=== PATIENT | male | born 1980 | race Caucasian/White ===

== ENCOUNTER 2021-08-23 00:05 | Observation (INO) ==
[2021-08-23 00:14] VITALS: BMI 30.2
[2021-08-23] MEDS ORDERED: NS 100 ML IV 100 ML IV STA (00:33)
[2021-08-23] MEDS ORDERED: ASPIRIN EC 81 MG PO ONE (00:33)
--- NOTE | 2021-08-23 00:33 | DR.CP ---
HPI Time Seen Time Seen by Provider: 08/23/21 00:23 PCP Primary Care Physician: WALT STANLEY HPI Comment HPI Comment: PATIENT WITH A HISTORY OF GERD COMPLAINS OF ACUTE ONSET OF SUB STERNAL BURNING DISCOMFORT CONSTANT SINCE 7PM LAST NIGHT, RADIATES TO HIS BACK ASSOCIATED WITH NAUSEA AND HEADACHE. Complaint Chief Complaint Doctor Comments: CHEST PAIN Chief Complaint:: PT C/O CHEST PAIN THAT GOES THUR TO HIS BACK LT ARM PAIN AND BAD HEADACHE WITH SOME NAUSEA. PAIN HAS BEEN CONSTANT SINCE 7 PM COVID-19 Coronavirus risk:travel/contact w/high risk person: No Has patient experienced Coronavirus symptoms: No Reviewed Nurses Notes Review: Yes Source History Provided: Patient Mode of Arrival Mode of Arrival: Ambulatory Timing Onset of Chief Complaint: 08/22/21 Duration Duration: Constant How lon Duration: Hours Location Location of Chest Pain: Chest Context Onset: At rest Quality Quality: Burning Severity Severity: Moderate Modifying Factors Worsens: Nothing PMH PMH Past Medical History: No Past Surgical History: Yes Surgical History: Appendectomy Past Surgical History Comment: SINUS SURGERY Family History History of Family Medical Conditions: No Social History Does any household member use tobacco: No Alcohol Use: None Do you use any recreational Drugs:: No Lives With: Family Lives Where: Home Infectious screening In the last 2 months have you had wt loss of >10#?: NO Have you had fever, night sweats or hemotysis?: No Have you traveled outside the country in the last 6 months?: No Isolation: Standard ROS Review of Systems Constitutional: No Symptoms Reported Eyes: No Symptoms Reported ENTM: No Symptoms Reported Respiratoy: No Symptoms Reported Cardiovascular: See HPI and Chest Pain (BURNING PAIN DISCOMFORT) Gastrointestinal/Abdominal: See HPI Genitourinary: No Symptoms Reported Neurological: No Symptoms Reported Musculoskeletal: No Symptoms Reported Integumentary: No Symptoms Reported Hematologic/Lymphatic: No Symptoms Reported Endocrine: No Symptoms Reported Psychiatric: No Symptoms Reported All Other Systems: Reviewed and Negative PE Vitals Vitals: Temperature 98.2 F Pulse Rate [Apical] 57 Pulse Rate 52 Respiratory Rate 18 Blood Pressure [Left Arm] 110/70 Blood Pressure 133/84 O2 Sat by Pulse Oximetry 99 General Limitations: No Limitations General Appearance: Alert and In No Apparent Distress Head Head Exam: Normal Inspection Eyes Eye exam: Normal Appearance and PERRL ENT ENT Exam: Normal Oropharynx Chest Chest Inspection: Normal Inspection and Symmetric Chest Wall Rise Respiratory Respiratory Exam: Normal Lung Sounds Bilat Respiratory Exam: Bilateral: Clear to Auscultation Cardiovascular Cardiovascular Exam: Regular Rate and Bradycardia Pulse: Normal Abdominal Exam Abdominal Exam: Normal Inspection, Normal Bowel Sounds and Soft Neurologic Neurological Exam: Alert and Oriented X3 Psychiatric Psychiatric Exam: Normal Affect and Normal Mood Skin Skin Exam: Warm and Dry MDM Additional Information Findings: ANGINA Differential Diagnosis Differential Diagnosis: Chest Wall Pain, Costochondritis and Gastritis COURSE Treatment Treatment: IV NORMAL SALINE 50ML/HR, ASPIRIN 324MG ORALLY, PROTONIX 40MG IV, NITROPASTE 1/2 " ANTERIOR CHEST WALL Reevaluation 1st: Improved Consultation Call Returned: 05:43 Consultation Comments: DISCUSSED WITH DR ABBOTT FOR OBSERVATION ROR Labs Reviewed Laboratory Results Reviewed?: Yes Result Diagrams: 08/23/21 00:55 08/23/21 00:55 Laboratory: WBC 7.0 X10^3/uL (3.6-10.0) 08/23/21 00:55 RBC 4.42 X10^6/uL (4.7-6.0) L 08/23/21 00:55 Hgb 13.8 g/dL (13.5-18.0) 08/23/21 00:55 Hct 39.2 % (42.0-54.0) L 08/23/21 00:55 MCV 88.6 fL (80.0-100.0) 08/23/21 00:55 MCH 31.2 pg (27.0-34.0) 08/23/21 00:55 MCHC 35.2 g/dL (33.0-35.0) H 08/23/21 00:55 RDW 12.9 % (11.6-16.5) 08/23/21 00:55 Plt Count 240 X10^3/uL (150.0-450.0) 08/23/21 00:55 MPV 7.1 fL (7.4-11.0) L 08/23/21 00:55 Neut % (Auto) 62.5 % (42.0-75.0) 08/23/21 00:55 Lymph % (Auto) 22.6 % (21.0-51.0) 08/23/21 00:55 [place] % (Auto) 9.5 % (0.0-13.0) 08/23/21 00:55 Eos % (Auto) 4.4 % (0.9-2.9) H 08/23/21 00:55 Baso % (Auto) 1.0 % (0.2-1.0) 08/23/21 00:55 Neut # (Auto) 4.4 x10^3/uL (2.2-4.8) 08/23/21 00:55 Lymph # (Auto) 1.6 X10^3/uL (1.3-2.9) 08/23/21 00:55 [place] # (Auto) 0.7 x10^3/uL (0.3-0.8) 08/23/21 00:55 Eos # (Auto) 0.3 x10^3/uL (0.0-0.2) H 08/23/21 00:55 Baso # (Auto) 0.1 X10^3/uL (0.0-0.1) 08/23/21 00:55 Absolute Nucleated RBC 0.1 /100WBC 08/23/21 00:55 D-Dimer 0.20 ug/ml (0.0-0.57) 08/23/21 00:55 Sodium 140 mmol/L (136-145) 08/23/21 00:55 Corrected Sodium 140 mmol/L (136-145) 08/23/21 00:55 Potassium 3.5 mmol/L (3.5-5.1) 08/23/21 00:55 Chloride 104 mmol/L (98-107) 08/23/21 00:55 Carbon Dioxide 28.8 mmol/L (21-32) 08/23/21 00:55 BUN 15 mg/dL (7-18) 08/23/21 00:55 Creatinine 1.05 mg/dL (0.70-1.30) 08/23/21 00:55 Est GFR (MDRD) Af Amer > 60 (>60) 08/23/21 00:55 Est GFR (MDRD) Non-Af > 60 (>60) 08/23/21 00:55 Glucose 115 mg/dL (65-99) H 08/23/21 00:55 Calcium 9.0 mg/dL (8.5-10.1) 08/23/21 00:55 Corrected Calcium TNP 08/23/21 00:55 Magnesium 2.1 mg/dL (1.7-2.9) 08/23/21 00:55 Total Bilirubin 0.40 mg/dL (0.2-1.0) 08/23/21 00:55 AST 27 Units/L (15-37) 08/23/21 00:55 ALT 55 Units/L (12-78) 08/23/21 00:55 Alkaline Phosphatase 77 Units/L (46-116) 08/23/21 00:55 Troponin I < 0.02 ng/mL (0-1.5) 08/23/21 00:55 Total Protein 7.1 g/dL (6.4-8.2) 08/23/21 00:55 Albumin 3.7 g/dL (3.4-5.0) 08/23/21 00:55 Globulin 3.4 g/dL (2.5-4.5) 08/23/21 00:55 Albumin/Globulin Ratio 1.1 Ratio (1.1-2.1) 08/23/21 00:55 SARS-CoV-2 (PCR) Negative (NEGATIVE) 08/23/21 03:50 Influenza Type A (PCR) Negative (NEGATIVE) 08/23/21 03:50 Influenza Type B (PCR) Negative (NEGATIVE) 08/23/21 03:50 RSV (PCR) Negative (NEGATIVE) 08/23/21 03:50 XRAY X-ray Results: PORTABLE CHEST XRAY -NO ACUTE PROCESS EKG Rate: 52 [place]: Normal Rhythm: NSR and SB Opioid Opioid Risk Tool Total: 0 Total Score Risk Category: Low Risk Copyright: Robin MATTSON predicting aberrant behaviors Diagnosis Discharge Problem: Acute chest pain
[2021-08-23] MEDS ORDERED: NITROSTAT SL PRN (00:39)
[2021-08-23] MEDS ORDERED: NS 1,000 ML IV 1,000 ML IV ONE (00:44)
[2021-08-23] MEDS ORDERED: ASPIRIN 81 MG CHEWTAB ONE (00:45)
[2021-08-23] MEDS ORDERED: NS 1,000 ML IV 1,000 ML ONE (00:46)
[2021-08-23 01:06] LABS: BASOPHILS # (AUTO) 0.1 X10^3/uL (0.0-0.1); EOSINOPHILS # (AUTO) 0.3 x10^3/uL (0.0-0.2); EOSINOPHILS % (AUTO) 4.4 % (0.9-2.9); HEMATOCRIT 39.2 % (42.0-54.0); HEMOGLOBIN 13.8 g/dL (13.5-18.0); LYMPHOCYTES # (AUTO) 1.6 X10^3/uL (1.3-2.9); LYMPHOCYTES % (AUTO) 22.6 % (21.0-51.0); MEAN CORPUSCULAR HEMOGLOBIN 31.2 pg (27.0-34.0); MEAN CORPUSCULAR HGB CONC 35.2 g/dL (33.0-35.0); MEAN CORPUSCULAR VOLUME 88.6 fL (80.0-100.0); MEAN PLATELET VOLUME 7.1 fL (7.4-11.0); MONOCYTES # (AUTO) 0.7 x10^3/uL (0.3-0.8); MONOCYTES % (AUTO) 9.5 % (0.0-13.0); NEUTROPHILS # (AUTO) 4.4 x10^3/uL (2.2-4.8); NEUTROPHILS % (AUTO) 62.5 % (42.0-75.0); PLATELET COUNT 240 X10^3/uL (150.0-450.0); RED BLOOD COUNT 4.42 X10^6/uL (4.7-6.0); RED CELL DISTRIBUTION WIDTH 12.9 % (11.6-16.5)
[2021-08-23 01:17] LABS: ALANINE AMINOTRANSFERASE 55 Units/L (12-78); ALBUMIN 3.7 g/dL (3.4-5.0); ALKALINE PHOSPHATASE 77 Units/L (46-116); ASPARTATE AMINO TRANSFERASE 27 Units/L (15-37); BLOOD UREA NITROGEN 15 mg/dL (7-18); CARBON DIOXIDE 28.8 mmol/L (21-32); CHLORIDE 104 mmol/L (98-107); COR NA(FOR HYPERGLY) 140 mmol/L (136-145); CREATININE 1.05 mg/dL (0.70-1.30); MAGNESIUM 2.1 mg/dL (1.7-2.9); SODIUM 140 mmol/L (136-145); TOTAL PROTEIN 7.1 g/dL (6.4-8.2); TROPONIN I < 0.02 ng/mL (0-1.5); eGFR NON BLACK RACES > 60 (>60)
[2021-08-23] MEDS ORDERED: NITRO-BID OINT 2% UD (E.R. USE ONLY) TD ONE (01:17)
[2021-08-23] MEDS ORDERED: NITRO-BID OINT 2% UD (E.R. USE ONLY) ONE (01:21)
[2021-08-23] MEDS ORDERED: PROTONIX INJ 40 MG VIAL IVP ONE ×2 (01:25→01:32)
[2021-08-23] MEDS ORDERED: PROTONIX INJ 40 MG VIAL ONE (01:26)
--- NOTE | 2021-08-23 01:56 | RAD ---
HISTORYDYSPNEA PSH: APPENDIX, SINUSESSTUDYCHEST, 1 VIEWCOMPARISONNoneFINDINGSThe trachea is midline. The cardiac silhouette is unremarkable. The lungs are clear without focal infiltrate or effusion. Pulmonary vasculature within normal limits. No pneumothorax. The bony thorax is unremarkable.IMPRESSIONNormal chest.Electronically signed by: Rey Aj (Aug 23, 2021 01:54:18)
[2021-08-23 06:30] LABS: CKMB % 0.5 % (<4); CREATINE KINASE 204 Units/L (39-308); CREATINE KINASE MB < 1.0 ng/mL (0-4.0); TROPONIN I < 0.02 ng/mL (0-1.5)
[2021-08-23] MEDS: NS 1,000 ML IV 1,000 ML IV SCH ×2 (07:23→20:46)
[2021-08-23] MEDS ORDERED: PROTONIX INJ 40 MG VIAL IVP SCH (09:00)
[2021-08-23] MEDS: ASPIRIN PO SCH (09:15)
[2021-08-23] MEDS: LOVENOX INJ 100 MG SYR SC SCH ×2 (09:16→20:49)
[2021-08-23] MEDS: MORPHINE SULFATE INJ 2 MG INJ IVP PRN (09:55)
--- NOTE | 2021-08-23 11:14 | US ---
HISTORY: Right upper quadrant abdominal pain. Nausea and vomiting.Study: Right upper quadrant abdominal ultrasoundComparison: None available.Technique: Multiple walsh scale and color flow Doppler images of the right upper quadrant were obtained.Findings: The liver [is normal in echotexture and size]. No focal intraparenchymal mass or intrahepatic biliary ductal dilatation can be observed. [The gallbladder fails to demonstrate evidence for cholelithiasis or layering sludge]. The common bile duct is unremarkable measuring 2 mm. [No pericholecystic fluid or gallbladder wall thickening can be observed]. The CBD measures [within normal limits]. There is appropriate vascular flow in the portal vein, hepatic artery, and visualized hepatic veins. The right kidney appears normal in size without focal parenchymal mass or nephrolithiasis. The right kidney measurers 11 x 5 x 5 cm. No hydronephrosis or perirenal fluid can be observed. The [pancreatic head and body are unremarkable. The pancreatic tail] is largely obscured by overlying bowel gas. No ascites or loculated fluid collection is evident.IMPRESSION:1. Unremarkable examination of the right upper quadrant.Electronically signed by: GEOVANNI POLLACK III (Aug 23, 2021 11:12:48)
--- NOTE | 2021-08-23 11:41 | DR.H&P ---
H&P - History & Physical for Day of: H&P Date: 08/23/21 - Chief Complaint Chief Complaint: CHEST PAIN, NAUSEA - History of Present Illness History of Present Illness: IS A 41 YEAR OLD PATIENT OF OURS. HE PRESENTED TO THE ER WITH COMPLAINTS OF SUBSTERNAL CHEST PAIN. PAIN STARTED ABOUT 5 HOURS PRIOR TO ARRIVAL AND HAD PROGRESSIVELY GOTTEN WORSE. HE REPORTS THAT PAIN RADIATES TO THE LEFT ARM AND THROUGH TO HIS BACK. HE ALSO REPORTS HEADACHE AND NAUSEA. PAIN IS CONSTANT, BURNING, AND WAS RATED A 6/10 ON ARRIVAL. PATIENT HAS A HISTORY OF GERD. HE DENIES ANYTHING THAT MAKES CHEST PAIN BETTER. HE REPORTS THAT HE OFTEN HAS NAUSEA AND A BURNING PAIN AFTER EATING, BUT NEVER LIKE THIS EPISODE. ON ARRIVAL TO THE ER, VITALS WERE 98.2-52-18-97%-133/84. LABS WERE OBTAINED. ABNORMAL LAB VALUES INCLUDE THE FOLLOWING: RBC 4.42, HCT 39.2, GLUCOSE 115. CARDIAC ENZYMES WITHIN NORMAL LIMITS. COVID, INFLUENZA, AND RSV NEGATIVE. EKG WAS OBTAINED AND REVEALED: SINUS RHYTHM WITH HR 52. CHEST XRAY WAS OBTAINED AND REVEALED: The trachea is midline. The cardiac silhouette is unremarkable. The lungs are clear without focal infiltrate or effusion. Pulmonary vasculature within normal limits. No pneumothorax. The bony thorax is unremarkable. IN THE ER, HE WAS GIVEN ECOTRIN 81MG PO X 1, NITROBID OINTMENT, PROTONIX 40MG IV X 1. HE WAS ADMITTED TO THE HOSPITAL FOR FURTHER EVALUATION AND TREATMENT OF CHEST PAIN RULE OUT ACUTE UT, NAUSEA. HE WAS STARTED ON NORMAL SALINE AT 75 ML/HR, ASPIRIN 325MG PO DAILY, LOVENOX 100MG SC BID, MORPHINE 1-2MG IV Q4H PRN, PROTONIX 40MG IV DAILY, ROSUVASTATIN 10MG PO HS. TODAY, WE WILL CONSULT WITH , [facility]. WE WILL ALSO OBTAIN AN ECHO, GALLBLADDER ULTRASOUND, AND A HIDA SCAN. OTHERWISE, WE PLAN TO FOLLOW UP WITH AM LABS AND CONTINUE TO MONITOR. TIME SPENT ON CLINICAL ASSESSMENT, REVIEWING LABS AND IMAGING, DECISION MAKING, AND DOCUMENTATION GREATER THAN 75 MINUTES. - Past Medical History Past Medical History: GERD - Past Surgical History Surgical History: Appendectomy - Family History Family Medical History: Diabetes Mellitus - Social History Does patient currently use any type of tobacco product: No Have you used tobacco products in the last 12 months: No Does any household member use tobacco: No Alcohol Use: None Drug Use: None - Medications Home Medications: No Known Drug Allergies Allergy (Verified 08/23/21 00:14) CONTINUE taking the following medications cetirizine [Zyrtec] 10 mg PO HS 08/23/21 [History] omeprazole 40 mg PO BID 08/23/21 [History] - Review of Systems Constitutional: No Symptoms Reported Eyes: No Symptoms Reported ENT: No Symptoms Reported Respiratory: No Symptoms Reported Cardiovascular: Chest Pain Gastrointestinal: Nausea Genitourinary: No Symptoms Reported Musculoskeletal: No Symptoms Reported Skin: No Symptoms Reported Neurological: Weakness - Physical Exam Vital Signs: Temperature 97.8 F Pulse Rate [Apical] 51 Pulse Rate 52 Respiratory Rate 18 Blood Pressure [Left Arm] 137/82 Blood Pressure 133/84 O2 Sat by Pulse Oximetry 98 Oriented: Normal Eyes: Normal Ear: Normal Nose: Normal Throat: Normal Respiratory: Clear Throughout Cardiovascular: Bradycardia : Normal Auscultation: Bowel Sounds: Normal Palpation: Normal Tenderness: Normal Skin: Normal Musculoskeletal: Left, Arm, Tender Psychiatric: Normal Mood Description: Calm Affect: Normal Speech Pattern: Clear - Assessment/Plan (1) Acute chest pain Status: Acute Plan: ADMIT, CARDIAC ENZYMES, ECHO, CARDIOLOGY CONSULT, NORMAL SALINE AT 75 ML/HR, ASPIRIN 325MG PO DAILY, LOVENOX 100MG SC BID, MORPHINE 1-2MG IV Q4H PRN, PROTONIX 40MG IV DAILY, ROSUVASTATIN 10MG PO HS. (2) Nausea Status: Acute Plan: GALLBLADDER ULTRASOUND, HIDA SCAN - Allergies Allergies/Adverse Reactions: Allergies Allergy/AdvReac Type Severity Reaction Status Date / Time No Known Drug Allergies Allergy Verified 08/23/21 00:14
[2021-08-23 12:58] LABS: CKMB % 0.5 % (<4); CREATINE KINASE 199 Units/L (39-308); CREATINE KINASE MB < 1.0 ng/mL (0-4.0); TROPONIN I < 0.02 ng/mL (0-1.5)
[2021-08-23] MEDS: PEPCID 20 MG IV PREMIX* 20 MG/50 ML BAG IV SCH ×2 (14:37→20:50)
[2021-08-23] MEDS: LEVSIN/MAALOX/LIDOC VISC PO SCH ×3 (14:38→20:47)
[2021-08-23] MEDS ORDERED: NS 500 ML IV 500 ML IV ONE (15:19)
[2021-08-23] MEDS ORDERED: DIPRIVAN VIAL 20 ML ONE (15:40)
[2021-08-23] MEDS ORDERED: TYLENOL 325 MG TAB PO PRN (16:08)
[2021-08-23] MEDS ORDERED: TYLENOL 325 MG TAB PO ONE (16:17)
--- NOTE | 2021-08-23 16:56 | CT ---
HISTORYCHEST PAIN RADITATING TO BACKSTUDYCT CHEST SPINE W/DYECOMPARISONNone availableTECHNIQUEMultiple axial images of the chest were obtained from the thoracic inlet to the upper abdomen after the administration of IV contrast. Dose reduction techniques including Automated Exposure Control (AEC) and adjustment of mA and kV were utilized.FINDINGS[The thyroid gland normal. Heart size is normal. No pericardial effusion. Thoracic aorta is normal in caliber and configuration. No mediastinal hematoma, atrial hematoma or dissection. No enlarged mediastinal or hilar lymph node. The esophagus is normal. No focal airspace consolidation, nodule or mass. No pleural effusion or pneumothorax. Review of bone windows demonstrates no acute osseous abnormality.]IMPRESSIONNo acute cardiopulmonary abnormality.Electronically signed by: KEENA JOY (Aug 23, 2021 16:53:40)
[2021-08-23 18:50] LABS: CKMB % 0.6 % (<4); CREATINE KINASE 170 Units/L (39-308); CREATINE KINASE MB < 1.0 ng/mL (0-4.0); TROPONIN I < 0.02 ng/mL (0-1.5)
[2021-08-23] MEDS: CRESTOR TAB 10 MG PO SCH (20:47)
[2021-08-23] MEDS: PROTONIX INJ 40 MG VIAL IVP SCH (20:50)
--- NOTE | 2021-08-24 06:00 | RAD ---
HISTORYChest painSTUDYChest AP [id number]/2021 chest x-ray and CT chestFINDINGSHeart is within normal limits in size. The joey are normal. The lung puentes are clear. No pneumothorax or pleural effusion is identified. Bony thorax is unremarkable.IMPRESSIONNo significant abnormality identifiedElectronically signed by: NANCI GUTIERREZ (Aug 24, 2021 05:58:37)
[2021-08-24 06:17] LABS: BASOPHILS # (AUTO) 0.1 X10^3/uL (0.0-0.1); BASOPHILS % (AUTO) 1.4 % (0.2-1.0); EOSINOPHILS # (AUTO) 0.2 x10^3/uL (0.0-0.2); EOSINOPHILS % (AUTO) 4.7 % (0.9-2.9); HEMATOCRIT 39.8 % (42.0-54.0); HEMOGLOBIN 14.1 g/dL (13.5-18.0); LYMPHOCYTES # (AUTO) 1.3 X10^3/uL (1.3-2.9); LYMPHOCYTES % (AUTO) 23.7 % (21.0-51.0); MEAN CORPUSCULAR HEMOGLOBIN 31.5 pg (27.0-34.0); MEAN CORPUSCULAR HGB CONC 35.4 g/dL (33.0-35.0); MEAN CORPUSCULAR VOLUME 88.9 fL (80.0-100.0); MEAN PLATELET VOLUME 7.2 fL (7.4-11.0); MONOCYTES # (AUTO) 0.6 x10^3/uL (0.3-0.8); MONOCYTES % (AUTO) 11.4 % (0.0-13.0); NEUTROPHILS # (AUTO) 3.1 x10^3/uL (2.2-4.8); NEUTROPHILS % (AUTO) 58.8 % (42.0-75.0); PLATELET COUNT 229 X10^3/uL (150.0-450.0); RED BLOOD COUNT 4.47 X10^6/uL (4.7-6.0); RED CELL DISTRIBUTION WIDTH 13.2 % (11.6-16.5); WHITE BLOOD COUNT 5.3 X10^3/uL (3.6-10.0)
[2021-08-24 06:27] LABS: ALANINE AMINOTRANSFERASE 58 Units/L (12-78); ALBUMIN 3.4 g/dL (3.4-5.0); ALKALINE PHOSPHATASE 65 Units/L (46-116); ASPARTATE AMINO TRANSFERASE 31 Units/L (15-37); BLOOD UREA NITROGEN 12 mg/dL (7-18); CARBON DIOXIDE 28.2 mmol/L (21-32); CHLORIDE 106 mmol/L (98-107); CHOL/HDL RATIO 3.9 (0.0-5.0); CHOLESTEROL 134 mg/dL (0-200); CREATININE 1.05 mg/dL (0.70-1.30); HDL CHOLESTEROL 34 mg/dL (40-60); MAGNESIUM 2.4 mg/dL (1.7-2.9); SODIUM 141 mmol/L (136-145); TOTAL PROTEIN 6.8 g/dL (6.4-8.2); TRIGLYCERIDES 98 mg/dL (0-150); eGFR NON BLACK RACES > 60 (>60)
[2021-08-24] MEDS: PEPCID 20 MG IV PREMIX* 20 MG/50 ML BAG IV SCH ×2 (09:13→20:15)
[2021-08-24] MEDS: ASPIRIN PO SCH (09:15)
[2021-08-24] MEDS: PROTONIX INJ 40 MG VIAL IVP SCH ×2 (09:19→20:16)
[2021-08-24] MEDS: NS 1,000 ML IV 1,000 ML IV SCH ×2 (09:19→23:25)
[2021-08-24] MEDS: LEVSIN/MAALOX/LIDOC VISC PO SCH ×4 (10:05→20:14)
[2021-08-24] MEDS: LOVENOX INJ 100 MG SYR SC SCH ×2 (10:06→20:15)
--- NOTE | 2021-08-24 15:21 | NM ---
HISTORY: RUQ pain, nausea. Abdominal pain.EXAM: Nuclear Medicine HIDA ExamTechnique: Multiple scintigraphic images of the abdomen were obtained the intravenous administration of 5.8 mCi of technetium labeled Choletec.Following distention of the gallbladder with radiotracer a bottle of Ensure was given.An estimated gallbladder ejection fraction was calculated based on this physiologic response.Findings: Homogeneous uptake of radiotracer is seen throughout the liver. The intrabiliary ductal system is observed normally. The common hepatic and common bile duct grossly appear unremarkable with normal biliary-bowel transit. The gallbladder is observed to fill normally without evidence for acute cholecystitis. After the administration of ensure, however, an abnormally low gallbladder ejection fraction of 7% (normal > 35%) is observed. Although many etiologies (certain medications, cholangitis, pancreatitis, sepsis, etc.) can account for a low gallbladder ejection fraction, in the outpatient setting, the most common etiology is chronic cholecystitis.IMPRESSION:1. Hepatobiliary imaging study demonstrates no evidence for acute hepatic dysfunction or acute cholecystitis.2. Low gallbladder ejection fraction of 7%, most likely reflecting chronic cholecystitis, as discussed above.Electronically signed by: GEOVANNI POLLACK III (Aug 24, 2021 15:19:31)
[2021-08-24] MEDS: CRESTOR TAB 10 MG PO SCH (20:15)
[2021-08-24] MEDS: MORPHINE SULFATE INJ 2 MG INJ IVP PRN (23:25)
[2021-08-25] MEDS: LEVSIN/MAALOX/LIDOC VISC PO SCH ×3 (08:08→17:15)
[2021-08-25] MEDS: LOVENOX INJ 100 MG SYR SC SCH ×2 (08:09→08:20)
[2021-08-25] MEDS: PROTONIX INJ 40 MG VIAL IVP SCH (08:09)
[2021-08-25] MEDS: PEPCID 20 MG IV PREMIX* 20 MG/50 ML BAG IV SCH (08:09)
[2021-08-25] MEDS: ASPIRIN PO SCH ×2 (08:09→08:20)
[2021-08-25] MEDS: MORPHINE SULFATE INJ 2 MG INJ IVP PRN ×2 (08:10→17:14)
[2021-08-25] MEDS ORDERED: ANCEF VIAL 1 GRAM ONE (11:22)
[2021-08-25] MEDS ORDERED: LR 1,000 ML IV 1,000 ML IV ONE (11:23)
[2021-08-25] MEDS ORDERED: NS 100 ML IV 100 ML ONE (11:23)
[2021-08-25] MEDS ORDERED: BRIDION ONE (11:40)
[2021-08-25] MEDS ORDERED: ZEMURON 50 MG VIAL ONE (11:41)
[2021-08-25] MEDS ORDERED: PEPCID 20 MG IV ONE (11:41)
[2021-08-25] MEDS ORDERED: OFIRMEV IV 1000 MG VIAL 1,000 MG/100 ML VIAL IV ONE (11:41)
[2021-08-25] MEDS ORDERED: FENTANYL VIAL INJ 100 mcg ONE (11:41)
[2021-08-25] MEDS ORDERED: KETALAR ONE (11:41)
[2021-08-25] MEDS ORDERED: DILAUDID INJ ONE (11:41)
[2021-08-25] MEDS ORDERED: ZOFRAN INJ 4 MG VIAL ONE (12:58)
[2021-08-25] MEDS ORDERED: DECADRON INJ ONE (12:58)
[2021-08-25] MEDS ORDERED: DIPRIVAN VIAL ONE (12:58)
[2021-08-25] MEDS ORDERED: XYLOCAINE 1 % (PLAIN) ONE (12:58)
[2021-08-25] MEDS ORDERED: ULTANE GAS IN ONE (12:58)
[2021-08-25] MEDS ORDERED: TORADOL 30 MG VIAL ONE (12:58)
[2021-08-25] MEDS ORDERED: LACRI-LUBE S.O.P. ONE (12:58)
[2021-08-25] MEDS ORDERED: ATROPINE SULFATE ONE (12:58)
[2021-08-25] MEDS ORDERED: ROBINUL ONE (12:58)
[2021-08-25] MEDS ORDERED: VERSED ONE (12:58)
[2021-08-25] MEDS ORDERED: BACTROBAN TOPICAL OINT ONE (13:30)
[2021-08-25] MEDS ORDERED: BENADRYL INJ 50 MG VIAL IVP PRN (14:17)
[2021-08-25] MEDS ORDERED: PHENERGAN INJ 25 MG IM PRN (14:17)
[2021-08-25] MEDS ORDERED: BARHEMSYS INJ IVP PRN (14:17)
[2021-08-25] MEDS: DILAUDID INJ IVP PRN ×2 (14:23→14:28)
[2021-08-25] MEDS: NS 1,000 ML IV 1,000 ML IV SCH (15:47)
[2021-08-25 18:24] VITALS: BP 108/67
== END 2021-08-25 18:35 | disposition home or self-care (01) ==
LOC: MED/SURG 00:06 → ER 00:06 → MED/SURG 06:39
PROVIDERS: ADMIT Internal Medicine; ATTEND Internal Medicine
DX: K80.10 Calculus of gallbladder with chronic cholecystitis without obstruction; R51.9 Headache, unspecified; K44.9 Diaphragmatic hernia without obstruction or gangrene; K25.3 Acute gastric ulcer without hemorrhage or perforation; Z20.822 Contact with and (suspected) exposure to COVID-19; K22.2 Esophageal obstruction; R07.89 Other chest pain; K31.7 Polyp of stomach and duodenum; R79.1 Abnormal coagulation profile; K21.9 Gastro-esophageal reflux disease without esophagitis

== ENCOUNTER 2025-07-06 16:50 | Observation (INO) ==
[2025-07-06 18:06] VITALS: BMI 30.2
[2025-07-06] MEDS ORDERED: ZOFRAN INJ 4 MG VIAL IVP PRN (18:35)
[2025-07-06] MEDS ORDERED: MORPHINE SULFATE INJ 2 MG INJ IVP PRN (18:35)
[2025-07-06 19:00] LABS: MEAN PLATELET VOLUME 7.3 fL (7.4-11.0); RED CELL DISTRIBUTION WIDTH 13.3 % (11.6-16.5)
[2025-07-06 19:11] LABS: CREATININE 0.97 mg/dL (0.70-1.30); eGFR NON BLACK RACES > 60 (>60)
[2025-07-06] MEDS: D5 1/2 NS 1,000 ML 1,000 ML IV SCH (20:48)
[2025-07-06] MEDS: FLAGYL IV PREMIX 500 MG BAG 500 MG/100 ML BAG IV SCH (21:41)
[2025-07-06] MEDS: PROTONIX INJ 40 MG VIAL IVP SCH (21:42)
[2025-07-07 04:46] LABS: MEAN PLATELET VOLUME 7.4 fL (7.4-11.0); RED CELL DISTRIBUTION WIDTH 13.8 % (11.6-16.5)
[2025-07-07 04:54] LABS: CREATININE 0.87 mg/dL (0.70-1.30); eGFR NON BLACK RACES > 60 (>60)
[2025-07-07] MEDS: CONSULT PHARMACY - POTASSIUM & MAGNESIUM XX SCH (05:38)
--- NOTE | 2025-07-07 06:11 | RAD ---
EXAM: KUB HISTORY: Abdominal pain, diarrhea COMPARISON: None FINDINGS: Abdomina l gas pattern is nonspecific and nonobstructive. No abnormal masses or abnormal calcifications are identified. Patient appears to be status post cholecystectomy. Regional skeleton is intact. IMPRESSION: Unremarkable KUB THIS IS AN ELECTRONICALLY VERIFIED FINAL REPORT 07/07/2025 6:07 AM - Electronically signed by Iglesia Holcomb MD
[2025-07-07] MEDS: POTASSIUM CHLORIDE LIQ PO ONE (08:20)
--- NOTE | 2025-07-07 08:25 | RAD ---
EXAM: KUB HISTORY: ABDOMEN PAIN/DIARRHEA; ASTHMA, CHRONIC COUGH, GERD, PEPTIC ULCERS SX: APPY, ANUP, LASIK, LEFT FOOT COMPARISON: 07/06/2025 TECHNIQUE: AP abdomen, supine FINDINGS: No abnormally distended bowel loops. No abnormal calcifications. Right upper quadrant metallic surgical clips. IMPRESSION: Nonobstructive bowel gas pattern. No acute findings. THIS IS AN ELECTRONICALLY VERIFIED FINAL REPORT 07/07/2025 8:22 AM - Electronically signed by Burt Bustamante MD
[2025-07-07] MEDS: IMODIUM CAP 2 MG PO SCH (09:41)
[2025-07-07 11:34] LABS: CRYPTOSPORIDIUM PARVUM ANTIGEN NEGATIVE (NEGATIVE); GIARDIA LAMBLIA ANTIGEN NEGATIVE (NEGATIVE)
--- NOTE | 2025-07-07 14:55 | CT ---
EXAM: ABDCMEN/PELVIS WITH CON HISTORY: gastroenteritis, dehydration; COMPARISON: X-ray July 07, 2025 TECHNIQUE: ABDCMEN/PELVIS WITH CON Axial CT images were obtained through the abdomen and pelvis without contrast. Coronal and sagittal reformatted images were included. All CT scans at this facility use dose modulation, iterative reconstruction, and/or weight based dosing when appropriate to reduce radiation dose to as low as reasonably achievable. FINDINGS: Lung bases normal. No free air noted. No bone lesion noted. 1 cm image 18 right anterior liver small hemangioma. Portal veins normal. Cholecystectomy. Kidneys are normal. Adrenal glands, pancreas and spleen are normal. Aorta is normal. IVC is normal. Small bowel loops appear normal. No colitis. No diverticulitis. No appendicitis. Terminal ileum is normal. No bowel obstruction noted. Pelvis CT demonstrates normal bladder. No adenopathy. No ascites. No bone lesion IMPRESSION: 1. No inflammatory changes. No ileus. 2. Small liver hemangioma THIS IS AN ELECTRONICALLY VERIFIED FINAL REPORT 07/07/2025 2:52 PM - Electronically signed by Mindy Velasco MD
--- NOTE | 2025-07-07 15:41 | DR.PROGNOT ---
HOSPITAL PROGRESS NOTE Progress Note for Day of: Progress Note Date: 07/07/25 Chief Complaint Chief Complaint: Patient is having more loose bowel movement today with abdominal cramps and pain, no nausea or vomiting. The stool was positive for white cells, negative for C. difficile, negative for Giardia and Campylobacter.. Urinalysis showed concentrated urine. White count is normal 6.2, electrolytes were normal, BUN/creatinine are normal, potassium 3.7. Abdominal CT scan was reported as normal. Patient is afebrile and stable vital signs. Abdomen is soft with epigastric and right side tenderness, no rebound or rigidity, bowel sounds present We added Imodium in addition to IV Flagyl and other medications and IV fluid. Past Medical Family Social History Allergies: Allergies No Known Drug Allergies Allergy (Verified 09/19/23 11:14) pollen extracts Allergy (Verified 09/19/23 11:14) Vital Signs Vital Signs: Vital Signs Temperature 98.0 F Temperature 97.9 F Pulse Rate [Left] 56 Pulse Rate [Left] 54 Respiratory Rate 20 Respiratory Rate 20 Blood Pressure [Left Arm] 118/77 Blood Pressure [Left Arm] 107/70 O2 Sat by Pulse Oximetry 99 O2 Sat by Pulse Oximetry 98 Physical Exam Oriented: Normal Eyes: Normal Ear: Normal Nose: Normal Throat: Normal Respiratory: Normal Cardiovascular: Normal GI:Auscultation: Normal GI:Palpation: Normal GI: Tenderness: Diffuse and RLQ (Mild right side and right lower quadrant tenderness) Speech Pattern: Clear and Appropriate Laboratory and Diagnostics 07/07/25 04:32 07/07/25 04:32 Labs: 07/06/25 18:45 Stool Stool Culture - Preliminary 07/06/25 18:45 Stool - Final Laboratory WBC 6.2 X10^3/uL (3.6-10.0) 07/07/25 04:32 RBC 4.26 X10^6/uL (4.7-6.0) L 07/07/25 04:32 Hgb 13.1 g/dL (13.5-18.0) L 07/07/25 04:32 Hct 37.2 % (42.0-54.0) L 07/07/25 04:32 MCV 87.3 fL (80.0-100.0) 07/07/25 04:32 MCH 30.7 pg (27.0-34.0) 07/07/25 04:32 MCHC 35.2 g/dL (33.0-35.0) H 07/07/25 04:32 RDW 13.8 % (11.6-16.5) 07/07/25 04:32 Plt Count 245 X10^3/uL (150.0-450.0) 07/07/25 04:32 MPV 7.4 fL (7.4-11.0) 07/07/25 04:32 Neut % (Auto) 57.8 % (42.0-75.0) 07/07/25 04:32 Lymph % (Auto) 26.1 % (21.0-51.0) 07/07/25 04:32 [place] % (Auto) 10.8 % (0.0-13.0) 07/07/25 04:32 Eos % (Auto) 4.2 % (0.9-2.9) H 07/07/25 04:32 Baso % (Auto) 1.1 % (0.2-1.0) H 07/07/25 04:32 Neut # (Auto) 3.6 x10^3/uL (2.2-4.8) 07/07/25 04:32 Lymph # (Auto) 1.6 X10^3/uL (1.3-2.9) 07/07/25 04:32 [place] # (Auto) 0.7 x10^3/uL (0.3-0.8) 07/07/25 04:32 Eos # (Auto) 0.3 x10^3/uL (0.0-0.2) H 07/07/25 04:32 Baso # (Auto) 0.1 X10^3/uL (0.0-0.1) 07/07/25 04:32 Absolute Nucleated RBC 0.9 /100WBC 07/07/25 04:32 Sodium 141 mmol/L (136-145) 07/07/25 04:32 Corrected Sodium TNP 07/07/25 04:32 Potassium 3.7 mmol/L (3.5-5.1) 07/07/25 04:32 Chloride 108 mmol/L (98-107) H 07/07/25 04:32 Carbon Dioxide 25.4 mmol/L (21-32) 07/07/25 04:32 BUN 16 mg/dL (7-18) 07/07/25 04:32 Creatinine 0.87 mg/dL (0.70-1.30) 07/07/25 04:32 Est GFR (MDRD) Af Amer > 60 (>60) 07/07/25 04:32 Est GFR (MDRD) Non-Af > 60 (>60) 07/07/25 04:32 Glucose 94 mg/dL (65-99) 07/07/25 04:32 Calcium 8.2 mg/dL (8.5-10.1) L 07/07/25 04:32 Corrected Calcium TNP 07/07/25 04:32 Magnesium 2.1 mg/dL (2.0-2.9) 07/07/25 04:32 Total Bilirubin 0.60 mg/dL (0.2-1.0) 07/07/25 04:32 AST 29 Units/L (15-37) 07/07/25 04:32 ALT 49 Units/L (12-78) 07/07/25 04:32 Alkaline Phosphatase 70 Units/L (46-116) 07/07/25 04:32 Total Protein 6.5 g/dL (6.4-8.2) 07/07/25 04:32 Albumin 3.4 g/dL (3.4-5.0) 07/07/25 04:32 Globulin 3.1 g/dL (2.5-4.5) 07/07/25 04:32 Albumin/Globulin Ratio 1.1 Ratio (1.1-2.1) 07/07/25 04:32 Stl Occult Blood (IFOB) Negative (NEGATIVE) 07/07/25 10:10 Stool for White Cells Positive (NEGATIVE) A 07/07/25 10:10 Stl C. diff Tox B Gene Negative (NEGATIVE) 07/07/25 10:10 Stl C. diff [id number] Presumptive negative (NEGATIVE) 07/07/25 10:10 Cryptosporid parvum Ag Negative (NEGATIVE) 07/07/25 10:10 Giardia lamblia Ag Negative (NEGATIVE) 07/07/25 10:10 Assessment and Plan 1: Severe diarrhea with dehydration. Same IV fluid and supportive care. IV Flagyl and added Imodium. Future colonoscopy if no improvement.
[2025-07-07] MEDS: [UNRECOGNIZED DRUG - OTHER] PO ONE (16:19)
[2025-07-07] MEDS: NS 500 ML IV 500 ML IV ONE (16:20)
[2025-07-07] MEDS: OMNIPAQUE 350 mg/mL 100 mL BTL 100 ML ONE (16:20)
[2025-07-08 03:41] VITALS: RESP 19
[2025-07-08 06:14] LABS: MEAN PLATELET VOLUME 7.2 fL (7.4-11.0); RED CELL DISTRIBUTION WIDTH 13.4 % (11.6-16.5)
[2025-07-08 06:28] LABS: COR CA(FOR HYPOALB) 9.0 mg/dL (8.5-10.1); CREATININE 0.96 mg/dL (0.70-1.30); eGFR NON BLACK RACES > 60 (>60)
[2025-07-08 10:54] VITALS: BP 108/63; PULSE 52; TEMP 97.1; O2SAT 96
== END 2025-07-08 10:50 | disposition home or self-care (01) ==
LOC: MED/SURG
PROVIDERS: ADMIT Surgery; ATTEND Surgery
DX: R19.7 Diarrhea, unspecified; E83.51 Hypocalcemia; Z87.11 Personal history of peptic ulcer disease; E86.0 Dehydration; R10.84 Generalized abdominal pain; Z87.09 Personal history of other diseases of the respiratory system; D64.89 Other specified anemias; K52.89 Other specified noninfective gastroenteritis and colitis